=== PATIENT | female | born 1965 | race African-American/Black ===

== ENCOUNTER 2020-03-26 01:05 | Emergency (ER) | payer MEDICAID ==
[~2020-03-26] VITALS: Ht 165.1 cm; Wt 70.0 kg
[2020-03-26] MEDS ORDERED: PREDNISONE 20MG TABLET PO STA (01:21)
[2020-03-26] MEDS ORDERED: MAGNESIUM 2 G PREMIX 50 ML IV ONE (01:30)
[2020-03-26 03:56] VITALS: BP 174/100
== END 2020-03-26 03:57 | disposition home or self-care (01) ==
LOC: ER 01:05
DX: J44.1 Chronic obstructive pulmonary disease with (acute) exacerbation (principal); I10 Essential (primary) hypertension; E11.9 Type 2 diabetes mellitus without complications; Z87.891 Personal history of nicotine dependence; Z71.6 Tobacco abuse counseling
CPT/HCPCS: 71045; 96365; 99284; 99406; J3475; J7512

== ENCOUNTER 2021-07-03 07:26 | Emergency (ER) | payer MEDICAID, OTHER ==
[~2021-07-03] VITALS: Ht 160 cm; Wt 91.0 kg
[2021-07-03] MEDS ORDERED: ACETAMINOPHEN 325MG TABLET PO ONE (09:30)
[2021-07-03 09:45] VITALS: BP 123/63
== END 2021-07-03 10:25 | disposition home or self-care (01) ==
LOC: ER 07:26
DX: Z00.00 Encounter for general adult medical examination without abnormal findings (principal); Z48.00 Encounter for change or removal of nonsurgical wound dressing; Z46.6 Encounter for fitting and adjustment of urinary device; J44.9 Chronic obstructive pulmonary disease, unspecified; E11.9 Type 2 diabetes mellitus without complications; I10 Essential (primary) hypertension
CPT/HCPCS: 99283

== ENCOUNTER 2021-12-12 10:22 | Emergency (ER) | payer MEDICAID, OTHER ==
[~2021-12-12] VITALS: Ht 162.6 cm; Wt 68.0 kg
[2021-12-12] MEDS ORDERED: CLONIDINE 0.1MG TABLET PO ONE (11:00)
[2021-12-12 11:07] VITALS: BP 210/101
[2021-12-12 12:12] LABS: BASOPHILS % 0.4 % (0.0-2.0); HEMATOCRIT. 35.6 % (36.0-48.0); HEMOGLOBIN. 10.7 g/dL (12.0-16.0); LYMPHOCYTES % 33.4 % (20.0-50.0); MEAN CORPUSCULAR HEMOGLOBIN 19.7 pg (28.0-32.0); MEAN CORPUSCULAR VOLUME 65.7 fL (81.0-99.0); MEAN PLATELET VOLUME 8.9 fl (7.4-10.4); MONOCYTES % 7.9 % (2.0-8.0); NEUTROPHILS % 57.3 % (40.0-76.0); PLATELET 252 x1000/uL (130-400); RED BLOOD CELL COUNT 5.42 mill/uL (4.2-5.4)
[2021-12-12 12:20] LABS: CHLORIDE 111 mEq/L (98-107)
[2021-12-12 14:22] LABS: PLATELET ESTIMATE NORMAL
== END 2021-12-12 15:41 | disposition home or self-care (01) ==
LOC: ER 10:22
DX: I10 Essential (primary) hypertension (principal); E11.9 Type 2 diabetes mellitus without complications; J44.9 Chronic obstructive pulmonary disease, unspecified
CPT/HCPCS: 36415; 71045; 80053; 82962; 83880; 84484; 85025; 93005; 99285

== ENCOUNTER 2022-01-12 18:28 | Inpatient (IN) | payer MEDICAID ==
[~2022-01-12] VITALS: Ht 160 cm; Wt 76.2 kg
[2022-01-12] MEDS ORDERED: NITROGLYCERIN 0.4MG TABLET SL SL PRN (18:45)
[2022-01-12] MEDS ORDERED: CLONIDINE 0.2MG TABLET PO ONE (18:45)
[2022-01-12] MEDS ORDERED: ASPIRIN 81MG TABLET PO ONE (18:45)
[2022-01-12 19:06] LABS: BASOPHILS % 0.4 % (0.0-2.0); EOSINOPHILS % 1.3 % (0.0-5.0); HEMATOCRIT. 35.7 % (36.0-48.0); HEMOGLOBIN. 10.6 g/dL (12.0-16.0); LYMPHOCYTES % 25.9 % (20.0-50.0); MEAN CORPUSCULAR HEMOGLOBIN 20.1 pg (28.0-32.0); MEAN CORPUSCULAR VOLUME 67.7 fL (81.0-99.0); MEAN PLATELET VOLUME 8.8 fl (7.4-10.4); MONOCYTES % 7.8 % (2.0-8.0); NEUTROPHILS % 64.6 % (40.0-76.0); PLATELET 234 x1000/uL (130-400); RED BLOOD CELL COUNT 5.28 mill/uL (4.2-5.4)
[2022-01-12 19:11] LABS: CHLORIDE 98 mEq/L (98-107)
[2022-01-12] MEDS ORDERED: INSULIN REGULAR (HUMULIN R) 300UNITS/3ML VIAL SUBCUT ONE (19:45)
[2022-01-12 20:03] LABS: PLATELET ESTIMATE NORMAL
[2022-01-12] MEDS ORDERED: ENOXAPARIN 100MG/ML SYR SUBCUT ONE (22:00)
[2022-01-12] MEDS ORDERED: FUROSEMIDE 40MG/4ML VIAL IVP ONE (22:00)
[2022-01-12] MEDS ORDERED: IOHEXOL-350 100 ML BOTTLE ONE (22:34)
[2022-01-12] MEDS ORDERED: DOCUSATE SODIUM 100MG CAPSULE PO PRN (23:00)
[2022-01-12] MEDS ORDERED: CLONIDINE 0.1MG TABLET PO PRN (23:00)
[2022-01-12] MEDS ORDERED: HYDRALAZINE 20MG/ML VIAL IV PRN (23:00)
[2022-01-12] MEDS ORDERED: POTASSIUM CHLORIDE 20MEQ TABLET SR PO SCH (23:00)
[2022-01-12] MEDS ORDERED: ACETAMINOPHEN 325MG TABLET PO PRN ×2 (23:00)
[2022-01-12] MEDS ORDERED: MAGNESIUM/ALUMINUM HYDROXIDE/SIMETHICONE 30ML UDC PO PRN (23:00)
[2022-01-12] MEDS ORDERED: IPRATROPIUM/ALBUTEROL 0.5-3(2.5)MG/3ML NEB HHN PRN (23:00)
[2022-01-12] MEDS ORDERED: HYDROCODONE/ACETAMINOPHEN 5/325MG TABLET PO PRN (23:00)
[2022-01-12] MEDS ORDERED: ONDANSETRON HCL 4MG/2ML INJ IV PRN (23:00)
[2022-01-12] MEDS ORDERED: NALOXONE HCL 0.4 MG/ML 1ML VIAL IV PRN (23:15)
[2022-01-13] VITALS (8 sets, daily range): BP systolic 133–179; BP diastolic 70–105
[2022-01-13] MEDS ORDERED: POTASSIUM CHLORIDE 20MEQ TABLET SR PO ONE
[2022-01-13 01:24] LABS: INR 1.1; PARTIAL THROMBOPLASTIN TIME 36.7 sec (23.4-31.0); PROTHROMBIN TIME 11.6 sec (9.6-11.0)
[2022-01-13 06:25] LABS: BASOPHILS % 0.4 % (0.0-2.0); EOSINOPHILS % 1.4 % (0.0-5.0); HEMATOCRIT. 31.7 % (36.0-48.0); HEMOGLOBIN. 9.6 g/dL (12.0-16.0); LYMPHOCYTES % 32.3 % (20.0-50.0); MEAN CORPUSCULAR HEMOGLOBIN 19.5 pg (28.0-32.0); MEAN CORPUSCULAR VOLUME 64.6 fL (81.0-99.0); MEAN PLATELET VOLUME 8.6 fl (7.4-10.4); MONOCYTES % 9.1 % (2.0-8.0); NEUTROPHILS % 56.8 % (40.0-76.0); PLATELET 240 x1000/uL (130-400); RED BLOOD CELL COUNT 4.91 mill/uL (4.2-5.4); RED CELL DISTRIBUTION WIDTH 17.6 % (11.6-14.6)
[2022-01-13 06:27] LABS: CHLORIDE 102 mEq/L (98-107)
[2022-01-13] MEDS ORDERED: INSULIN LISPRO 100 UNITS/ML SUBCUT SCH ×2 (06:30→13:00)
[2022-01-13 06:34] LABS: LDL CHOLESTEROL 95 mg/dL (5-100)
[2022-01-13 06:35] LABS: HDL CHOLESTEROL 57 mg/dL (40-59)
[2022-01-13 06:38] LABS: CREATINE KINASE MB FRACTION 1.6 ng/mL (0.5-3.6)
[2022-01-13] MEDS ORDERED: NIFEDIPINE XL 60MG TAB PO SCH (09:00)
[2022-01-13] MEDS ORDERED: DEXTROSE 50% WATER 50ML SYRINGE IV PRN (10:00)
[2022-01-13] MEDS ORDERED: METF-416 PO (11:13)
[2022-01-13] MEDS ORDERED: OMEP20TA2 PO (11:13)
[2022-01-13] MEDS ORDERED: BENA20TA10 PO (11:13)
[2022-01-13] MEDS ORDERED: MONT10TA32 PO (11:13)
[2022-01-13] MEDS ORDERED: GABA300S PO (11:13)
[2022-01-13] MEDS ORDERED: ALBU6.7H15 IH (11:14)
[2022-01-13] MEDS: BLOOD SUGAR DIAGNOSTIC STRIP TEST SCH ×3 (12:01→22:47)
[2022-01-13] MEDS: FUROSEMIDE 40MG/4ML VIAL IV SCH ×2 (12:06→22:47)
[2022-01-13] MEDS: METFORMIN HCL 500MG TABLET PO SCH (17:03)
[2022-01-13] MEDS: NIFEDIPINE XL 30MG TAB PO SCH (17:04)
[2022-01-13] MEDS: INSULIN LISPRO 100 UNITS/ML SUBCUT SCH ×2 (17:05→21:00)
[2022-01-13 17:07] LABS: CREATINE KINASE MB FRACTION 1.6 ng/mL (0.5-3.6)
[2022-01-13] MEDS ORDERED: INSULIN GLARGINE UD 100 UNITS/ML SYR SUBCUT SCH (22:00)
[2022-01-13] MEDS: PANTOPRAZOLE SODIUM 40 MG/VIAL IV SCH (22:47)
[2022-01-13] MEDS: LISINOPRIL 10MG TABLET PO SCH (22:47)
[2022-01-13] MEDS: GABAPENTIN SOLN 300MG/6ML UDC PO SCH (22:47)
[2022-01-13] MEDS: DIPHENHYDRAMINE 25MG CAPSULE PO PRN (22:47)
[2022-01-14] VITALS (10 sets, daily range): BP systolic 95–183; BP diastolic 47–109
[2022-01-14 05:47] LABS: PROTHROMBIN TIME 11.1 sec (9.6-11.0)
[2022-01-14 06:00] LABS: BASOPHILS % 0.5 % (0.0-2.0); EOSINOPHILS % 2.6 % (0.0-5.0); HEMATOCRIT. 36.2 % (36.0-48.0); LYMPHOCYTES % 28.4 % (20.0-50.0); MEAN CORPUSCULAR HEMOGLOBIN 19.7 pg (28.0-32.0); MEAN CORPUSCULAR VOLUME 64.6 fL (81.0-99.0); MEAN PLATELET VOLUME 9.6 fl (7.4-10.4); MONOCYTES % 7.5 % (2.0-8.0); PLATELET 262 x1000/uL (130-400)
[2022-01-14] MEDS: BLOOD SUGAR DIAGNOSTIC STRIP TEST SCH ×4 (07:30→21:41)
[2022-01-14] MEDS: LISINOPRIL 10MG TABLET PO SCH (08:25)
[2022-01-14] MEDS: MONTELUKAST SODIUM 10MG TABLET PO SCH (08:25)
[2022-01-14] MEDS: NIFEDIPINE XL 30MG TAB PO SCH (08:25)
[2022-01-14] MEDS: METFORMIN HCL 500MG TABLET PO SCH ×2 (08:25→17:10)
[2022-01-14] MEDS: PANTOPRAZOLE SODIUM 40 MG/VIAL IV SCH ×2 (08:26→21:28)
[2022-01-14] MEDS: FUROSEMIDE 40MG/4ML VIAL IV SCH ×2 (08:26→21:28)
[2022-01-14] MEDS: ENOXAPARIN 40MG/0.4ML SYR SUBCUT SCH ×2 (09:45→16:55)
[2022-01-14] MEDS: INSULIN LISPRO 100 UNITS/ML SUBCUT SCH ×4 (09:45→21:00)
[2022-01-14] MEDS ORDERED: INFLUENZA VACCINE IM ONE (10:00)
[2022-01-14] MEDS: DILTIAZEM HCL 90MG TABLET PO SCH ×3 (13:35→23:39)
[2022-01-14] MEDS: PNEUMOCOCCAL VACCINE IM ONE ×2 (17:09→17:12)
[2022-01-14] MEDS ORDERED: LISINOPRIL 20MG TABLET PO SCH (21:00)
[2022-01-14] MEDS: GABAPENTIN SOLN 300MG/6ML UDC PO SCH (21:28)
[2022-01-14] MEDS: DIPHENHYDRAMINE 25MG CAPSULE PO PRN (21:36)
[2022-01-15] VITALS (10 sets, daily range): BP systolic 120–167; BP diastolic 63–106
[2022-01-15 05:16] LABS: BASOPHILS % 0.6 % (0.0-2.0); EOSINOPHILS % 2.2 % (0.0-5.0); HEMOGLOBIN. 10.6 g/dL (12.0-16.0); LYMPHOCYTES % 31.2 % (20.0-50.0); MEAN CORPUSCULAR HEMOGLOBIN 19.5 pg (28.0-32.0); MEAN CORPUSCULAR VOLUME 64.6 fL (81.0-99.0); MEAN PLATELET VOLUME 9.2 fl (7.4-10.4); MONOCYTES % 8.3 % (2.0-8.0); NEUTROPHILS % 57.7 % (40.0-76.0); PLATELET 276 x1000/uL (130-400); RED BLOOD CELL COUNT 5.41 mill/uL (4.2-5.4); RED CELL DISTRIBUTION WIDTH 17.8 % (11.6-14.6)
[2022-01-15 05:32] LABS: PROTHROMBIN TIME 10.9 sec (9.6-11.0)
[2022-01-15] MEDS: DILTIAZEM HCL 90MG TABLET PO SCH (06:50)
[2022-01-15] MEDS: PANTOPRAZOLE SODIUM 40 MG/VIAL IV SCH ×2 (08:09→21:22)
[2022-01-15] MEDS: INSULIN LISPRO 100 UNITS/ML SUBCUT SCH ×4 (08:11→21:00)
[2022-01-15] MEDS: BLOOD SUGAR DIAGNOSTIC STRIP TEST SCH ×4 (08:27→21:29)
[2022-01-15] MEDS: MONTELUKAST SODIUM 10MG TABLET PO SCH (08:27)
[2022-01-15] MEDS ORDERED: BARIUM SULFATE 176 GM SUSP.RECON ONE (08:29)
[2022-01-15] MEDS ORDERED: EZ-HD SUSPENSION(BARIUM SULFATE 340GM) PO ONE (08:29)
[2022-01-15] MEDS ORDERED: SIMETHICONE/SOD BICARB/CIT AC 1 EACH GRAN.EF.PK ONE (08:30)
[2022-01-15] MEDS: DILTIAZEM HCL 120MG CAPSULE CD 24HR PO SCH ×2 (10:59→17:37)
[2022-01-15] MEDS ORDERED: DILT120C88 PO (19:00)
[2022-01-15] MEDS ORDERED: PANT40TA51 MT (19:00)
[2022-01-15] MEDS ORDERED: INSU100I28 SQ (19:00)
[2022-01-15] MEDS ORDERED: [UNRECOGNIZED DRUG - CODE] IN (19:00)
[2022-01-15] MEDS: GABAPENTIN SOLN 300MG/6ML UDC PO SCH (21:22)
[2022-01-15] MEDS: DIPHENHYDRAMINE 25MG CAPSULE PO PRN (21:22)
[2022-01-16] VITALS: BP 155/89
[2022-01-16 02:00] VITALS: BP 147/79
[2022-01-16 04:00] VITALS: BP 150/81
[2022-01-16 05:42] VITALS: BP 166/92
[2022-01-16 06:00] VITALS: BP 166/92
[2022-01-16 08:00] VITALS: BP 160/85
[2022-01-16] MEDS: BLOOD SUGAR DIAGNOSTIC STRIP TEST SCH (08:02)
[2022-01-16] MEDS: PANTOPRAZOLE SODIUM 40 MG/VIAL IV SCH (08:07)
[2022-01-16] MEDS: ENOXAPARIN 40MG/0.4ML SYR SUBCUT SCH (08:07)
[2022-01-16] MEDS: DILTIAZEM HCL 120MG CAPSULE CD 24HR PO SCH (08:07)
[2022-01-16] MEDS: MONTELUKAST SODIUM 10MG TABLET PO SCH (08:08)
[2022-01-16] MEDS: INSULIN LISPRO 100 UNITS/ML SUBCUT SCH (08:09)
== END 2022-01-16 09:41 | disposition home or self-care (01) | DRG 194 ==
LOC: ER 18:28 → MICUSO 21:52 → 5EST 01-13 09:23
PROVIDERS: ADMIT Internal Medicine; ATTEND Internal Medicine
DX: I13.0 Hypertensive heart and chronic kidney disease with heart failure and stage 1 through stage 4 chronic kidney disease, or unspecified chronic kidney disease (principal); J96.00 Acute respiratory failure, unspecified whether with hypoxia or hypercapnia; E43 Unspecified severe protein-calorie malnutrition; J44.1 Chronic obstructive pulmonary disease with (acute) exacerbation; I27.21 Secondary pulmonary arterial hypertension; D64.9 Anemia, unspecified; E11.22 Type 2 diabetes mellitus with diabetic chronic kidney disease; E11.65 Type 2 diabetes mellitus with hyperglycemia; E66.9 Obesity, unspecified; K44.9 Diaphragmatic hernia without obstruction or gangrene; L02.32 Furuncle of buttock; K21.9 Gastro-esophageal reflux disease without esophagitis; N18.2 Chronic kidney disease, stage 2 (mild); Z20.822 Contact with and (suspected) exposure to COVID-19; Z79.899 Other long term (current) drug therapy; K22.89 Other specified disease of esophagus; Z79.4 Long term (current) use of insulin; Z87.891 Personal history of nicotine dependence; Z68.29 Body mass index [BMI] 29.0-29.9, adult; I07.1 Rheumatic tricuspid insufficiency; I50.33 Acute on chronic diastolic (congestive) heart failure
CPT/HCPCS: 36415; 71045; 71275; 74220; 80048; 80053; 80061; 82550; 82553; 82607; 82728; 82746; 82962; 83036; 83540; 83550; 83735; 83880; 84443; 84484; 85025; 85044; 85379; 87426; 90686; 90732; 93005; 93306; 93970; 94640; 99285; C9113; J1650; J1815; J1940; J7517; Q0163; Q9967

== ENCOUNTER 2022-05-07 13:48 | Inpatient (IN) | payer MEDICAID ==
[~2022-05-07] VITALS: Ht 157.5 cm; Wt 80.7 kg
[~2022-05-07 13:48] MED LIST: ALBU6.7H15 IH; DILT120C88 PO; GABA300S PO; INSU100I28 SQ; METF-416 PO; MONT-39 PO; PANT40TA51 MT; [UNRECOGNIZED DRUG - CODE] IN
[2022-05-07] MEDS ORDERED: MORPHINE SULFATE 4 MG/ML CPJ (NOT FOR IM USE) IV STA (15:30)
[2022-05-07] MEDS ORDERED: ONDANSETRON HCL 4MG/2ML INJ IV STA (15:30)
[2022-05-07] MEDS ORDERED: SODIUM CHLORIDE 0.9% 1,000 ML IV ONE (15:30)
[2022-05-07 16:02] LABS: BASOPHILS % 0.5 % (0.0-2.0); EOSINOPHILS % 1.1 % (0.0-5.0); HEMATOCRIT. 43.6 % (36.0-48.0); HEMOGLOBIN. 13.2 g/dL (12.0-16.0); LYMPHOCYTES % 34.7 % (20.0-50.0); MEAN CORPUSCULAR HEMOGLOBIN 20.1 pg (28.0-32.0); MEAN CORPUSCULAR VOLUME 66.6 fL (81.0-99.0); MEAN PLATELET VOLUME 8.8 fl (7.4-10.4); MONOCYTES % 9.1 % (2.0-8.0); NEUTROPHILS % 54.6 % (40.0-76.0); PLATELET 277 x1000/uL (130-400); RED BLOOD CELL COUNT 6.55 mill/uL (4.2-5.4); RED CELL DISTRIBUTION WIDTH 15.6 % (11.6-14.6)
[2022-05-07 16:07] LABS: CHLORIDE 100 mEq/L (98-107)
[2022-05-07 16:23] LABS: PLATELET ESTIMATE NORMAL
[2022-05-07] MEDS ORDERED: INSULIN REGULAR (HUMULIN R) 300UNITS/3ML VIAL SUBCUT ONE (18:00)
[2022-05-07] MEDS ORDERED: ASPIRIN 325MG EC TABLET PO ONE (19:15)
[2022-05-07] MEDS ORDERED: MORPHINE SULFATE 4 MG/ML CPJ (NOT FOR IM USE) IV NR (20:30)
[2022-05-07] MEDS ORDERED: INSULIN REGULAR (HUMULIN R) 300UNITS/3ML VIAL SUBCUT NR (20:30)
[2022-05-07] MEDS ORDERED: ONDANSETRON HCL 4MG/2ML INJ IV NR (20:30)
[2022-05-07] MEDS ORDERED: CLONIDINE 0.2MG TABLET PO ONE (20:45)
[2022-05-07] MEDS ORDERED: CLONIDINE 0.2MG TABLET PO SCH (21:00)
[2022-05-07] MEDS ORDERED: DOCUSATE SODIUM 100MG CAPSULE PO PRN (21:30)
[2022-05-07] MEDS ORDERED: MAGNESIUM/ALUMINUM HYDROXIDE/SIMETHICONE 30ML UDC PO PRN (21:30)
[2022-05-07] MEDS ORDERED: ONDANSETRON HCL 4MG/2ML INJ IV PRN (21:30)
[2022-05-07] MEDS ORDERED: DEXTROSE 50% WATER 50ML SYRINGE IV PRN (21:30)
[2022-05-07] MEDS ORDERED: NITROGLYCERIN 0.4MG TABLET SL SL PRN (21:30)
[2022-05-07] MEDS ORDERED: ACETAMINOPHEN 325MG TABLET PO PRN ×2 (21:30)
[2022-05-07] MEDS ORDERED: GUAIFENESIN 200MG/10ML SUGAR FREE UDC PO PRN (21:30)
[2022-05-07] MEDS ORDERED: KETOROLAC 15MG/ML VIAL IV PRN (21:30)
[2022-05-07] MEDS ORDERED: NA PHOS,M-B/NA PHOS,DI-BA ENEMA 118ML PR PRN (21:30)
[2022-05-07] MEDS ORDERED: CLONIDINE 0.1MG TABLET PO PRN (21:30)
[2022-05-07] MEDS ORDERED: ZOLPIDEM TARTRATE 5MG TABLET PO PRN (21:30)
[2022-05-07] MEDS ORDERED: IPRATROPIUM/ALBUTEROL 0.5-3(2.5)MG/3ML NEB NEB PRN (21:30)
[2022-05-07 22:53] LABS: FOLIC ACID (FOLATE) SERUM 19.9 ng/mL (>5.38)
[2022-05-07] MEDS: NITROGLYCERIN OINT 1GM/INCH UDPKT TD SCH (23:14)
[2022-05-07] MEDS: HYDRALAZINE HCL 50MG TABLET PO SCH (23:14)
[2022-05-07] MEDS: AMLODIPINE 10MG TABLET PO SCH (23:14)
[2022-05-07] MEDS: INSULIN GLARGINE 100 UNITS/ML SUBCUT SCH (23:15)
[2022-05-08] VITALS (7 sets, daily range): BP systolic 98–167; BP diastolic 51–100
[2022-05-08 04:36] LABS: BASOPHILS % 0.4 % (0.0-2.0); EOSINOPHILS % 1.4 % (0.0-5.0); HEMATOCRIT. 39.5 % (36.0-48.0); HEMOGLOBIN. 11.8 g/dL (12.0-16.0); LYMPHOCYTES % 45.2 % (20.0-50.0); MEAN CORPUSCULAR VOLUME 66.9 fL (81.0-99.0); MEAN PLATELET VOLUME 8.2 fl (7.4-10.4); MONOCYTES % 9.2 % (2.0-8.0); NEUTROPHILS % 43.8 % (40.0-76.0); PLATELET 271 x1000/uL (130-400); RED BLOOD CELL COUNT 5.91 mill/uL (4.2-5.4); RED CELL DISTRIBUTION WIDTH 15.2 % (11.6-14.6)
[2022-05-08 05:08] LABS: CHLORIDE 102 mEq/L (98-107)
[2022-05-08 05:20] LABS: CREATINE KINASE 48 IU/L (26-192); CREATINE KINASE MB FRACTION 1.8 ng/mL (0.5-3.6); PHOSPHORUS 4.6 mg/dL (2.5-4.9)
[2022-05-08] MEDS: HYDRALAZINE HCL 50MG TABLET PO SCH ×3 (05:41→21:49)
[2022-05-08] MEDS: BLOOD SUGAR DIAGNOSTIC STRIP TEST SCH ×4 (05:55→20:57)
[2022-05-08] MEDS: NITROGLYCERIN OINT 1GM/INCH UDPKT TD SCH ×3 (06:13→21:49)
[2022-05-08] MEDS: METOCLOPRAMIDE 10MG/10 ML UDC PO SCH ×3 (06:13→17:40)
[2022-05-08] MEDS: INSULIN LISPRO 100 UNITS/ML SUBCUT SCH ×4 (06:15→20:59)
[2022-05-08] MEDS: AMLODIPINE 10MG TABLET PO SCH (08:56)
[2022-05-08] MEDS ORDERED: ENOXAPARIN 40MG/0.4ML SYR SUBCUT SCH (09:00)
[2022-05-08] MEDS: FUROSEMIDE 40MG/4ML VIAL IVP SCH ×2 (09:40→20:57)
[2022-05-08] MEDS: SPIRONOLACTONE 25MG TABLET PO SCH ×2 (09:40→20:57)
[2022-05-08] MEDS: ASPIRIN 325MG EC TABLET PO SCH (09:40)
[2022-05-08] MEDS: FAMOTIDINE 20MG TABLET PO SCH ×2 (09:43→20:57)
[2022-05-08] MEDS: GABAPENTIN 100MG CAPSULE PO SCH ×2 (14:57→21:49)
[2022-05-08 16:33] LABS: CREATINE KINASE MB FRACTION 1.9 ng/mL (0.5-3.6)
[2022-05-08 16:51] LABS: ETHANOL BLOOD < 10 mg/dL; HDL CHOLESTEROL 40 mg/dL (40-59); LDL CHOLESTEROL 114 mg/dL (5-100); TOTAL IRON BINDING CAPACITY 307 ug/dL (250-450)
[2022-05-08] MEDS: INSULIN GLARGINE 100 UNITS/ML SUBCUT SCH (21:50)
[2022-05-09] VITALS: BP 121/71
[2022-05-09 04:00] VITALS: BP 144/88
[2022-05-09] MEDS: NITROGLYCERIN OINT 1GM/INCH UDPKT TD SCH ×2 (05:15→13:29)
[2022-05-09] MEDS: HYDRALAZINE HCL 50MG TABLET PO SCH ×2 (05:15→13:28)
[2022-05-09] MEDS: GABAPENTIN 100MG CAPSULE PO SCH ×2 (05:15→13:28)
[2022-05-09] MEDS: BLOOD SUGAR DIAGNOSTIC STRIP TEST SCH ×3 (06:12→16:25)
[2022-05-09] MEDS: INSULIN LISPRO 100 UNITS/ML SUBCUT SCH ×3 (06:12→16:41)
[2022-05-09] MEDS: METOCLOPRAMIDE 10MG/10 ML UDC PO SCH ×3 (06:12→16:40)
[2022-05-09 08:00] VITALS: BP 136/68
[2022-05-09] MEDS ORDERED: ENOXAPARIN 30MG/0.3ML SYR SUBCUT SCH (09:00)
[2022-05-09] MEDS: FAMOTIDINE 20MG TABLET PO SCH (09:11)
[2022-05-09] MEDS: FUROSEMIDE 40MG/4ML VIAL IVP SCH (09:11)
[2022-05-09] MEDS: ASPIRIN 325MG EC TABLET PO SCH (09:11)
[2022-05-09] MEDS: SPIRONOLACTONE 25MG TABLET PO SCH (09:11)
[2022-05-09] MEDS: AMLODIPINE 10MG TABLET PO SCH (09:11)
[2022-05-09] MEDS ORDERED: INSULIN GLARGINE 100 UNITS/ML SUBCUT SCH (10:00)
[2022-05-09 12:00] VITALS: BP 121/65
[2022-05-09 16:00] VITALS: BP 111/47
== END 2022-05-09 19:25 | disposition left against medical advice (07) | DRG 203 ==
LOC: ER 13:48 → 8WST 19:10 → ENRESERV 20:03
PROVIDERS: ADMIT Internal Medicine; ATTEND Internal Medicine
DX: M94.0 Chondrocostal junction syndrome [Tietze] (principal); N17.0 Acute kidney failure with tubular necrosis; I50.33 Acute on chronic diastolic (congestive) heart failure; E44.1 Mild protein-calorie malnutrition; I11.0 Hypertensive heart disease with heart failure; E87.1 Hypo-osmolality and hyponatremia; K80.20 Calculus of gallbladder without cholecystitis without obstruction; E11.65 Type 2 diabetes mellitus with hyperglycemia; I16.1 Hypertensive emergency; E66.9 Obesity, unspecified; J44.9 Chronic obstructive pulmonary disease, unspecified; M19.90 Unspecified osteoarthritis, unspecified site; R19.00 Intra-abdominal and pelvic swelling, mass and lump, unspecified site; Z68.32 Body mass index [BMI] 32.0-32.9, adult; Z53.29 Procedure and treatment not carried out because of patient's decision for other reasons
CPT/HCPCS: 36415; 71045; 74176; 76705; 76830; 76856; 80053; 80061; 80305; 80320; 82550; 82553; 82607; 82746; 82962; 83036; 83540; 83550; 83735; 83880; 84100; 84439; 84443; 84484; 85025; 93005; 93306; 93970; 97162; 97165; 99285; J1650; J1815; J1940; J2270; J2405; J7030; J8597; G0480

== ENCOUNTER 2022-08-05 15:30 | Emergency (ER) | payer MEDICAID ==
[~2022-08-05] VITALS: Ht 160 cm; Wt 65.0 kg
[2022-08-05] MEDS ORDERED: ALBUTEROL (0.083%) 2.5MG/3ML NEB HHN STA (16:44)
[2022-08-05] MEDS ORDERED: NITROGLYCERIN 0.4MG TABLET SL SL PRN (16:45)
[2022-08-05] MEDS ORDERED: ASPIRIN 81MG TABLET PO ONE (16:45)
[2022-08-05] MEDS ORDERED: CLONIDINE 0.2MG TABLET PO ONE (17:00)
[2022-08-05 17:19] LABS: BASOPHILS % 0.5 % (0.0-2.0); EOSINOPHILS % 1.3 % (0.0-5.0); HEMATOCRIT. 37.2 % (36.0-48.0); HEMOGLOBIN. 11.1 g/dL (12.0-16.0); LYMPHOCYTES % 21.1 % (20.0-50.0); MEAN CORPUSCULAR HEMOGLOBIN 20.5 pg (28.0-32.0); MEAN CORPUSCULAR VOLUME 68.9 fL (81.0-99.0); MEAN PLATELET VOLUME 8.9 fl (7.4-10.4); MONOCYTES % 7.6 % (2.0-8.0); NEUTROPHILS % 69.5 % (40.0-76.0); PLATELET 272 x1000/uL (130-400); RED CELL DISTRIBUTION WIDTH 16.6 % (11.6-14.6)
[2022-08-05 17:25] LABS: CHLORIDE 101 mEq/L (98-107)
[2022-08-05 17:29] LABS: PARTIAL THROMBOPLASTIN TIME 30.5 sec (23.4-31.0)
[2022-08-05] MEDS ORDERED: INSULIN REGULAR (HUMULIN R) 300UNITS/3ML VIAL SUBCUT NR (18:04)
[2022-08-05] MEDS ORDERED: INSULIN REGULAR (HUMULIN R) UD 100 UNITS/ML SYR SUBCUT ONE (18:15)
[2022-08-05 18:30] LABS: PLATELET ESTIMATE NORMAL
[2022-08-05 20:00] VITALS: BP 142/72
== END 2022-08-05 21:20 | disposition admitted as inpatient to this hospital (09) ==
LOC: ER 15:30 → EDBEDREQ 18:19 → EDBEDREQTM 18:19 → ENRESERV 19:15 → ER 21:20 → CANBEDREQ 08-06 08:48
DX: I10 Essential (primary) hypertension (principal); R06.09 Other forms of dyspnea; E11.9 Type 2 diabetes mellitus without complications; J44.1 Chronic obstructive pulmonary disease with (acute) exacerbation
CPT/HCPCS: 36415; 71045; 80053; 83880; 84484; 85025; 85610; 85730; 93005; 99285; Z7610; J1815

== ENCOUNTER 2022-08-29 08:58 | Inpatient (IN) | payer MEDICAID ==
[~2022-08-29] VITALS: Ht 162.6 cm; Wt 89.0 kg
[2022-08-29] MEDS ORDERED: NITROGLYCERIN 0.4MG TABLET SL SL PRN (09:45)
[2022-08-29] MEDS ORDERED: MORPHINE SULFATE 2 MG/ML CPJ (NOT FOR IM USE) IV NR (10:00)
[2022-08-29] MEDS ORDERED: ONDANSETRON HCL 4MG/2ML INJ IV SCH (10:00)
[2022-08-29 10:13] LABS: HEMATOCRIT. 37.3 % (36.0-48.0); HEMOGLOBIN. 11.1 g/dL (12.0-16.0); MEAN CORPUSCULAR HEMOGLOBIN 20.2 pg (28.0-32.0); MEAN CORPUSCULAR VOLUME 68.3 fL (81.0-99.0); MEAN PLATELET VOLUME 9.2 fl (7.4-10.4); PLATELET 258 x1000/uL (130-400); RED BLOOD CELL COUNT 5.46 mill/uL (4.2-5.4); RED CELL DISTRIBUTION WIDTH 16.2 % (11.6-14.6)
[2022-08-29 10:19] LABS: CHLORIDE 102 mEq/L (98-107)
[2022-08-29 10:31] LABS: ETHANOL BLOOD < 10 mg/dL
[2022-08-29] MEDS ORDERED: ASPIRIN 325MG EC TABLET PO ONE (11:00)
[2022-08-29 11:02] LABS: PLATELET ESTIMATE NORMAL
[2022-08-29] MEDS ORDERED: POTASSIUM CHLORIDE 20MEQ TABLET SR PO NR (11:15)
[2022-08-29] MEDS ORDERED: KCL 20MEQ/100ML PREMIX 100 ML IV NR (11:15)
[2022-08-29 12:20] LABS: INR 1.1; PARTIAL THROMBOPLASTIN TIME 29.3 sec (23.4-31.0); PROTHROMBIN TIME 11.3 sec (9.6-11.0)
[2022-08-29] MEDS ORDERED: MAGNESIUM 2 G PREMIX 50 ML IV NR (13:00)
[2022-08-29] MEDS ORDERED: CEFTRIAXONE 1 G PREMIX 50 ML IV SCH (13:45)
[2022-08-29] MEDS ORDERED: DEXTROSE 50% WATER 50ML SYRINGE IV PRN (13:45)
[2022-08-29] MEDS ORDERED: ONDANSETRON HCL 4MG/2ML INJ IV PRN (13:45)
[2022-08-29] MEDS ORDERED: INSULIN GLARGINE 100 UNITS/ML SUBCUT SCH (13:45)
[2022-08-29 14:30] VITALS: BP 144/85
[2022-08-29 20:00] VITALS: BP 119/56
[2022-08-29] MEDS: ACETAMINOPHEN 325MG TABLET PO PRN (20:20)
[2022-08-29] MEDS: BLOOD SUGAR DIAGNOSTIC STRIP TEST SCH (20:25)
[2022-08-29] MEDS: INSULIN LISPRO 100 UNITS/ML SUBCUT SCH (20:26)
[2022-08-30] VITALS: BP 130/66
[2022-08-30 04:00] VITALS: BP 139/85
[2022-08-30] MEDS: BLOOD SUGAR DIAGNOSTIC STRIP TEST SCH ×4 (05:52→20:58)
[2022-08-30] MEDS: INSULIN LISPRO 100 UNITS/ML SUBCUT SCH ×4 (06:05→21:02)
[2022-08-30 08:00] VITALS: BP 148/82
[2022-08-30] MEDS ORDERED: LEVO250T43 MT ×2 (11:11)
[2022-08-30 12:00] VITALS: BP 134/80
[2022-08-30] MEDS: CEFTRIAXONE 1,000 MG in DEXTROSE 5% WATER 50 ML IV SCH (15:21)
[2022-08-30] MEDS: SODIUM CHLORIDE 0.9% 1,000 ML IV SCH (15:21)
[2022-08-30 15:49] LABS: BASOPHILS % 0.2 % (0.0-2.0); EOSINOPHILS % 0.3 % (0.0-5.0); HEMATOCRIT. 35.6 % (36.0-48.0); HEMOGLOBIN. 11.1 g/dL (12.0-16.0); LYMPHOCYTES % 9.1 % (20.0-50.0); MEAN CORPUSCULAR HEMOGLOBIN 20.7 pg (28.0-32.0); MEAN CORPUSCULAR VOLUME 66.2 fL (81.0-99.0); MEAN PLATELET VOLUME 9.7 fl (7.4-10.4); MONOCYTES % 5.5 % (2.0-8.0); NEUTROPHILS % 84.9 % (40.0-76.0); PLATELET 227 x1000/uL (130-400); RED BLOOD CELL COUNT 5.39 mill/uL (4.2-5.4); RED CELL DISTRIBUTION WIDTH 15.6 % (11.6-14.6)
[2022-08-30 16:00] VITALS: BP 128/69
[2022-08-30] MEDS ORDERED: VANCOMYCIN 1,750 MG in DEXT 5% WATER 500 ML IV NR (16:00)
[2022-08-30 17:06] LABS: PLATELET ESTIMATE NORMAL
[2022-08-30 20:00] VITALS: BP 127/64
[2022-08-30] MEDS: LORAZEPAM 2MG/ML CPJ IV PRN (20:15)
[2022-08-31] VITALS: BP 150/74
[2022-08-31 04:00] VITALS: BP 142/64
[2022-08-31] MEDS: LORAZEPAM 2MG/ML CPJ IV PRN ×2 (04:24→12:46)
[2022-08-31] MEDS: BLOOD SUGAR DIAGNOSTIC STRIP TEST SCH ×4 (05:41→20:43)
[2022-08-31] MEDS: SODIUM CHLORIDE 0.9% 1,000 ML IV SCH (05:42)
[2022-08-31] MEDS: INSULIN LISPRO 100 UNITS/ML SUBCUT SCH ×4 (06:12→20:43)
[2022-08-31 08:00] VITALS: BP 156/88
[2022-08-31 08:16] LABS: BASOPHILS % 0.1 % (0.0-2.0); EOSINOPHILS % 0.5 % (0.0-5.0); HEMATOCRIT. 34.2 % (36.0-48.0); HEMOGLOBIN. 10.4 g/dL (12.0-16.0); LYMPHOCYTES % 12.1 % (20.0-50.0); MEAN CORPUSCULAR HEMOGLOBIN 20.4 pg (28.0-32.0); MEAN CORPUSCULAR VOLUME 66.8 fL (81.0-99.0); MEAN PLATELET VOLUME 9.7 fl (7.4-10.4); MONOCYTES % 6.9 % (2.0-8.0); NEUTROPHILS % 80.4 % (40.0-76.0); PLATELET 214 x1000/uL (130-400); RED BLOOD CELL COUNT 5.12 mill/uL (4.2-5.4); RED CELL DISTRIBUTION WIDTH 15.9 % (11.6-14.6)
[2022-08-31] MEDS: ASPIRIN 81MG TABLET PO SCH (08:41)
[2022-08-31] MEDS ORDERED: HALOPERIDOL LACTATE 5MG/ML VIAL IM PRN (08:45)
[2022-08-31] MEDS: HALOPERIDOL LACTATE 5MG/ML VIAL IM PRN (09:01)
[2022-08-31 12:00] VITALS: BP 152/92
[2022-08-31] MEDS: IPRATROPIUM/ALBUTEROL 0.5-3(2.5)MG/3ML NEB HHN PRN (15:03)
[2022-08-31 16:13] VITALS: BP 140/80
[2022-08-31] MEDS ORDERED: THIAMINE HCL 100 MG in SODIUM CHLORIDE 0.9% 50 ML IV NR (17:00)
[2022-08-31] MEDS: CEFTRIAXONE 1,000 MG in DEXTROSE 5% WATER 50 ML IV SCH (17:00)
[2022-08-31 20:00] VITALS: BP 154/74
[2022-08-31] MEDS: RISPERIDONE 0.5MG TABLET PO SCH (20:42)
[2022-08-31] MEDS: INSULIN GLARGINE 100 UNITS/ML SUBCUT SCH (23:00)
[2022-09-01] VITALS: BP 156/87
[2022-09-01] MEDS: SODIUM CHLORIDE 0.9% 1,000 ML IV SCH ×2 (01:23→22:18)
[2022-09-01] MEDS: HALOPERIDOL LACTATE 5MG/ML VIAL IM PRN ×2 (02:35→09:29)
[2022-09-01 04:00] VITALS: BP 159/82
[2022-09-01] MEDS: BLOOD SUGAR DIAGNOSTIC STRIP TEST SCH ×4 (06:25→21:00)
[2022-09-01] MEDS: INSULIN LISPRO 100 UNITS/ML SUBCUT SCH ×4 (06:28→21:00)
[2022-09-01 07:47] LABS: BASOPHILS % 0.4 % (0.0-2.0); EOSINOPHILS % 0.5 % (0.0-5.0); HEMATOCRIT. 31.3 % (36.0-48.0); HEMOGLOBIN. 9.6 g/dL (12.0-16.0); LYMPHOCYTES % 13.6 % (20.0-50.0); MEAN CORPUSCULAR HEMOGLOBIN 20.3 pg (28.0-32.0); MEAN CORPUSCULAR VOLUME 66.1 fL (81.0-99.0); MEAN PLATELET VOLUME 9.6 fl (7.4-10.4); MONOCYTES % 8.2 % (2.0-8.0); NEUTROPHILS % 77.3 % (40.0-76.0); PLATELET 222 x1000/uL (130-400); RED BLOOD CELL COUNT 4.73 mill/uL (4.2-5.4); RED CELL DISTRIBUTION WIDTH 15.3 % (11.6-14.6)
[2022-09-01 08:00] VITALS: BP 140/82
[2022-09-01 08:18] LABS: CHLORIDE 111 mEq/L (98-107)
[2022-09-01] MEDS: RISPERIDONE 0.5MG TABLET PO SCH (08:32)
[2022-09-01] MEDS: ASPIRIN 81MG TABLET PO SCH (08:32)
[2022-09-01] MEDS: LORAZEPAM 2MG/ML CPJ IV PRN (08:44)
[2022-09-01] MEDS: INSULIN GLARGINE 100 UNITS/ML SUBCUT SCH ×2 (10:00→22:21)
[2022-09-01 12:00] VITALS: BP 143/85
[2022-09-01] MEDS ORDERED: TEMAZEPAM 15MG CAPSULE PO PRN (13:00)
[2022-09-01] MEDS: VALPROATE SODIUM 250MG/5ML UDC PO SCH ×2 (13:00→17:00)
[2022-09-01] MEDS: CEFTRIAXONE 1,000 MG in DEXTROSE 5% WATER 50 ML IV SCH ×2 (15:21→15:36)
[2022-09-01 16:00] VITALS: BP 148/88
[2022-09-01 20:00] VITALS: BP 196/76
[2022-09-01] MEDS: RISPERIDONE 1MG TABLET PO SCH (22:30)
[2022-09-02] VITALS: BP 168/91
[2022-09-02] MEDS: LORAZEPAM 2MG/ML CPJ IV PRN (00:35)
[2022-09-02 04:00] VITALS: BP 179/94
[2022-09-02] MEDS: ACETAMINOPHEN 325MG TABLET PO PRN (04:06)
[2022-09-02] MEDS: BLOOD SUGAR DIAGNOSTIC STRIP TEST SCH ×4 (06:22→20:34)
[2022-09-02] MEDS: INSULIN LISPRO 100 UNITS/ML SUBCUT SCH ×5 (06:33→20:35)
[2022-09-02 07:09] LABS: BASOPHILS % 0.2 % (0.0-2.0); EOSINOPHILS % 0.9 % (0.0-5.0); HEMATOCRIT. 30.8 % (36.0-48.0); HEMOGLOBIN. 9.6 g/dL (12.0-16.0); LYMPHOCYTES % 19.9 % (20.0-50.0); MEAN CORPUSCULAR HEMOGLOBIN 20.4 pg (28.0-32.0); MEAN CORPUSCULAR VOLUME 65.2 fL (81.0-99.0); MEAN PLATELET VOLUME 9.3 fl (7.4-10.4); MONOCYTES % 9.9 % (2.0-8.0); NEUTROPHILS % 69.1 % (40.0-76.0); PLATELET 267 x1000/uL (130-400); RED BLOOD CELL COUNT 4.73 mill/uL (4.2-5.4); RED CELL DISTRIBUTION WIDTH 15.3 % (11.6-14.6)
[2022-09-02 07:27] LABS: CHLORIDE 109 mEq/L (98-107)
[2022-09-02 08:00] VITALS: BP 197/99
[2022-09-02] MEDS: VALPROATE SODIUM 250MG/5ML UDC PO SCH ×2 (08:38→18:16)
[2022-09-02] MEDS: ASPIRIN 81MG TABLET PO SCH (08:38)
[2022-09-02] MEDS: RISPERIDONE 1MG TABLET PO SCH ×2 (08:39→20:34)
[2022-09-02] MEDS: LOSARTAN POTASSIUM 100 MG TABLET PO SCH (10:27)
[2022-09-02] MEDS: INSULIN GLARGINE 100 UNITS/ML SUBCUT SCH ×2 (10:58→22:16)
[2022-09-02 15:53] VITALS: BP 204/104
[2022-09-02] MEDS: NIFEDIPINE XL 60MG TAB PO SCH (16:06)
[2022-09-02] MEDS ORDERED: CLONIDINE 0.1MG TABLET PO PRN (18:00)
[2022-09-02] MEDS: HYDRALAZINE 20MG/ML VIAL IV PRN (18:15)
[2022-09-02] MEDS: SODIUM CHLORIDE 0.9% 1,000 ML IV SCH (18:18)
[2022-09-02 20:00] VITALS: BP 143/69
[2022-09-03] VITALS: BP 174/85
[2022-09-03] MEDS: HYDRALAZINE 20MG/ML VIAL IV PRN (00:17)
[2022-09-03 04:00] VITALS: BP 156/81
[2022-09-03] MEDS: HYDRALAZINE HCL 100MG TABLET PO SCH ×3 (05:02→21:54)
[2022-09-03] MEDS: BLOOD SUGAR DIAGNOSTIC STRIP TEST SCH ×4 (06:42→21:42)
[2022-09-03] MEDS: INSULIN LISPRO 100 UNITS/ML SUBCUT SCH ×4 (06:42→21:55)
[2022-09-03] MEDS ORDERED: LOSARTAN POTASSIUM 100 MG TABLET PO SCH (09:00)
[2022-09-03] MEDS: ASPIRIN 81MG TABLET PO SCH (09:15)
[2022-09-03] MEDS: VALPROATE SODIUM 250MG/5ML UDC PO SCH ×2 (09:15→17:52)
[2022-09-03] MEDS: NIFEDIPINE XL 60MG TAB PO SCH ×2 (09:16→21:53)
[2022-09-03] MEDS: RISPERIDONE 1MG TABLET PO SCH ×2 (09:16→21:54)
[2022-09-03] MEDS: LOSARTAN POTASSIUM 100 MG TABLET PO SCH (09:16)
[2022-09-03] MEDS: INSULIN GLARGINE 100 UNITS/ML SUBCUT SCH ×2 (09:17→21:55)
[2022-09-03] MEDS: HALOPERIDOL LACTATE 5MG/ML VIAL IM PRN ×2 (11:12→20:40)
[2022-09-03 12:00] VITALS: BP 153/79
[2022-09-03] MEDS: SODIUM CHLORIDE 0.9% 1,000 ML IV SCH (14:54)
[2022-09-03] MEDS: CEFTRIAXONE 1,000 MG in DEXTROSE 5% WATER 50 ML IV SCH (14:54)
[2022-09-03 16:00] VITALS: BP 142/97
[2022-09-03 20:00] VITALS: BP 154/74
[2022-09-03] MEDS: METRONIDAZOLE 500MG TABLET PO SCH (21:53)
[2022-09-03] MEDS: HYDROXYZINE 25MG TABLET PO SCH (21:53)
[2022-09-03] MEDS: ACETAMINOPHEN 325MG TABLET PO PRN (22:07)
[2022-09-04] VITALS: BP 123/50
[2022-09-04 04:00] VITALS: BP 149/70
[2022-09-04] MEDS: BLOOD SUGAR DIAGNOSTIC STRIP TEST SCH ×4 (05:29→21:10)
[2022-09-04] MEDS: METRONIDAZOLE 500MG TABLET PO SCH ×3 (05:35→21:08)
[2022-09-04] MEDS: HYDRALAZINE HCL 100MG TABLET PO SCH ×3 (05:35→21:07)
[2022-09-04] MEDS: INSULIN LISPRO 100 UNITS/ML SUBCUT SCH ×4 (05:36→21:09)
[2022-09-04 07:38] LABS: BASOPHILS % 0.5 % (0.0-2.0); EOSINOPHILS % 1.7 % (0.0-5.0); HEMATOCRIT. 33.6 % (36.0-48.0); HEMOGLOBIN. 10.5 g/dL (12.0-16.0); LYMPHOCYTES % 21.1 % (20.0-50.0); MEAN CORPUSCULAR HEMOGLOBIN 20.5 pg (28.0-32.0); MEAN CORPUSCULAR VOLUME 65.6 fL (81.0-99.0); MEAN PLATELET VOLUME 8.3 fl (7.4-10.4); MONOCYTES % 10.2 % (2.0-8.0); NEUTROPHILS % 66.5 % (40.0-76.0); PLATELET 346 x1000/uL (130-400); RED BLOOD CELL COUNT 5.12 mill/uL (4.2-5.4); RED CELL DISTRIBUTION WIDTH 15.2 % (11.6-14.6)
[2022-09-04 08:00] VITALS: BP 138/74
[2022-09-04] MEDS: ASPIRIN 81MG TABLET PO SCH (09:14)
[2022-09-04] MEDS: RISPERIDONE 1MG TABLET PO SCH ×2 (09:14→21:07)
[2022-09-04] MEDS: NIFEDIPINE XL 60MG TAB PO SCH ×2 (09:14→21:08)
[2022-09-04] MEDS: VALPROATE SODIUM 250MG/5ML UDC PO SCH ×2 (09:14→16:25)
[2022-09-04] MEDS: LOSARTAN POTASSIUM 100 MG TABLET PO SCH (09:14)
[2022-09-04] MEDS: SODIUM CHLORIDE 0.9% 1,000 ML IV SCH (09:15)
[2022-09-04] MEDS: INSULIN GLARGINE 100 UNITS/ML SUBCUT SCH ×2 (09:16→21:09)
[2022-09-04 11:36] LABS: CHLORIDE 109 mEq/L (98-107)
[2022-09-04 12:00] VITALS: BP 158/80
[2022-09-04] MEDS: CEFTRIAXONE 1,000 MG in DEXTROSE 5% WATER 50 ML IV SCH (15:27)
[2022-09-04 16:00] VITALS: BP 145/68
[2022-09-04] MEDS ORDERED: POTASSIUM CHLORIDE 20MEQ TABLET SR PO NR (18:15)
[2022-09-04 20:00] VITALS: BP 155/84
[2022-09-04] MEDS: ACETAMINOPHEN 325MG TABLET PO PRN (20:03)
[2022-09-04] MEDS: HYDROXYZINE 25MG TABLET PO SCH (21:07)
[2022-09-05] VITALS: BP 136/68
[2022-09-05 04:00] VITALS: BP 134/91
[2022-09-05] MEDS: ACETAMINOPHEN 325MG TABLET PO PRN (04:47)
[2022-09-05] MEDS: SODIUM CHLORIDE 0.9% 1,000 ML IV SCH (05:43)
[2022-09-05] MEDS: METRONIDAZOLE 500MG TABLET PO SCH ×3 (05:53→20:52)
[2022-09-05] MEDS: HYDRALAZINE HCL 100MG TABLET PO SCH ×3 (05:53→20:52)
[2022-09-05] MEDS: BLOOD SUGAR DIAGNOSTIC STRIP TEST SCH ×4 (05:54→20:56)
[2022-09-05] MEDS ORDERED: LIDOCAINE HCL 1% 50ML VIAL (10MG/ML) ONE (07:20)
[2022-09-05 08:00] VITALS: BP 148/83
[2022-09-05] MEDS: INSULIN LISPRO 100 UNITS/ML SUBCUT SCH ×4 (09:45→21:09)
[2022-09-05] MEDS: INSULIN GLARGINE 100 UNITS/ML SUBCUT SCH ×2 (09:48→21:09)
[2022-09-05] MEDS: ASPIRIN 81MG TABLET PO SCH (09:48)
[2022-09-05] MEDS: VALPROATE SODIUM 250MG/5ML UDC PO SCH ×2 (09:49→18:17)
[2022-09-05] MEDS: NIFEDIPINE XL 60MG TAB PO SCH ×2 (09:50→20:52)
[2022-09-05] MEDS: RISPERIDONE 1MG TABLET PO SCH ×2 (09:50→20:51)
[2022-09-05] MEDS: LOSARTAN POTASSIUM 100 MG TABLET PO SCH (09:51)
[2022-09-05 12:00] VITALS: BP 143/88
[2022-09-05] MEDS: CEFTRIAXONE 1,000 MG in DEXTROSE 5% WATER 50 ML IV SCH (13:55)
[2022-09-05 16:00] VITALS: BP 170/85
[2022-09-05] MEDS ORDERED: INSU100I28 SQ (16:52)
[2022-09-05] MEDS ORDERED: LOSA100T3 PO (16:52)
[2022-09-05] MEDS ORDERED: HYDR100T26 PO (16:52)
[2022-09-05] MEDS: IPRATROPIUM/ALBUTEROL 0.5-3(2.5)MG/3ML NEB HHN PRN (17:35)
[2022-09-05 20:00] VITALS: BP 204/84
[2022-09-05] MEDS: HYDROXYZINE 25MG TABLET PO SCH (20:52)
[2022-09-06] VITALS: BP 170/91
[2022-09-06] MEDS: HYDRALAZINE 20MG/ML VIAL IV PRN (01:20)
[2022-09-06] MEDS: SODIUM CHLORIDE 0.9% 1,000 ML IV SCH (01:45)
[2022-09-06 04:00] VITALS: BP 133/68
[2022-09-06] MEDS: BLOOD SUGAR DIAGNOSTIC STRIP TEST SCH ×2 (06:40→11:30)
[2022-09-06] MEDS: HYDRALAZINE HCL 100MG TABLET PO SCH ×2 (06:41→12:58)
[2022-09-06] MEDS: METRONIDAZOLE 500MG TABLET PO SCH ×2 (06:41→12:59)
[2022-09-06] MEDS: INSULIN LISPRO 100 UNITS/ML SUBCUT SCH ×2 (06:46→12:58)
[2022-09-06 08:00] VITALS: BP 140/70
[2022-09-06] MEDS: LOSARTAN POTASSIUM 100 MG TABLET PO SCH (09:07)
[2022-09-06] MEDS: ASPIRIN 81MG TABLET PO SCH (09:07)
[2022-09-06] MEDS: NIFEDIPINE XL 60MG TAB PO SCH (09:07)
[2022-09-06] MEDS: RISPERIDONE 1MG TABLET PO SCH (09:07)
[2022-09-06] MEDS: VALPROATE SODIUM 250MG/5ML UDC PO SCH (09:07)
[2022-09-06] MEDS: INSULIN GLARGINE 100 UNITS/ML SUBCUT SCH (09:08)
[2022-09-06] MEDS: ACETAMINOPHEN 325MG TABLET PO PRN (10:52)
[2022-09-06 12:00] VITALS: BP 127/61
[2022-09-06 13:07] VITALS: BP 127/61
== END 2022-09-06 14:15 | disposition home health service (06) | DRG 720 ==
LOC: ER 08:58 → 7EST 10:57 → EDBEDREQSVC 11:06 → EDBEDREQ 11:06 → ENRESERV 13:11 → 7EST 08-30 21:30
PROVIDERS: ADMIT Internal Medicine; ATTEND Internal Medicine
PROC: 4A00X4Z Measurement of Central Nervous Electrical Activity, External Approach (ICD-10-PCS; 2022-09-02)
PROC: 02HV33Z Insertion of Infusion Device into Superior Vena Cava, Percutaneous Approach (ICD-10-PCS; principal; 2022-09-05)
PROC: B5181ZA Fluoroscopy of Superior Vena Cava using Low Osmolar Contrast, Guidance (ICD-10-PCS; 2022-09-05)
PROC: B548ZZA Ultrasonography of Superior Vena Cava, Guidance (ICD-10-PCS; 2022-09-05)
DX: A40.1 Sepsis due to streptococcus, group B (principal); N17.0 Acute kidney failure with tubular necrosis; G93.40 Encephalopathy, unspecified; E43 Unspecified severe protein-calorie malnutrition; I24.9 Acute ischemic heart disease, unspecified; E87.1 Hypo-osmolality and hyponatremia; E88.09 Other disorders of plasma-protein metabolism, not elsewhere classified; F29 Unspecified psychosis not due to a substance or known physiological condition; Z20.822 Contact with and (suspected) exposure to COVID-19; I11.9 Hypertensive heart disease without heart failure; E11.65 Type 2 diabetes mellitus with hyperglycemia; D50.9 Iron deficiency anemia, unspecified; E87.6 Hypokalemia; E11.9 Type 2 diabetes mellitus without complications; M19.90 Unspecified osteoarthritis, unspecified site; J44.9 Chronic obstructive pulmonary disease, unspecified; E66.01 Morbid (severe) obesity due to excess calories; N89.8 Other specified noninflammatory disorders of vagina; Z68.34 Body mass index [BMI] 34.0-34.9, adult; Z79.899 Other long term (current) drug therapy; Z78.1 Physical restraint status
CPT/HCPCS: 36415; 36573; 71045; 80048; 80053; 80320; 82140; 82607; 82962; 83735; 83880; 84145; 84443; 84484; 85025; 87077; 87186; 87426; 93005; 93306; 94640; 95816; 97161; 97166; 99285; C1725; C1893; J0360; J0696; J1630; J1815; J2060; J2270; J2405; J3370; J3411; J3475; J3480; J3490; J7030; J7060; G0480

== ENCOUNTER 2022-09-18 04:40 | Emergency (ER) | payer MEDICAID ==
[~2022-09-18] VITALS: Ht 170.2 cm; Wt 82.0 kg
[~2022-09-18 04:40] MED LIST changes: +HYDR100T26 PO; +LOSA100T3 PO
[2022-09-18] MEDS ORDERED: ACETAMINOPHEN WITH CODEINE 300/30MG TABLET PO ONE (05:15)
[2022-09-18] MEDS ORDERED: ACETAMINOPHEN WITH CODEINE 300/30MG TABLET PO NR (07:45)
[2022-09-18 11:24] LABS: HEMATOCRIT. 32.4 % (36.0-48.0); HEMOGLOBIN. 10.1 g/dL (12.0-16.0); MEAN CORPUSCULAR HEMOGLOBIN 20.8 pg (28.0-32.0); MEAN CORPUSCULAR VOLUME 66.5 fL (81.0-99.0); RED BLOOD CELL COUNT 4.87 mill/uL (4.2-5.4); RED CELL DISTRIBUTION WIDTH 16.6 % (11.6-14.6)
[2022-09-18 11:39] LABS: PLATELET ESTIMATE NORMAL
[2022-09-18 11:42] LABS: CHLORIDE 106 mEq/L (98-107)
[2022-09-18] MEDS ORDERED: PIPERACILLIN/TAZ 3.375G PREMIX 50 ML IV ONE (12:00)
[2022-09-18] MEDS ORDERED: VANCOMYCIN 1G PREMIX 200 ML IV ONE (12:00)
[2022-09-18] MEDS ORDERED: HYDRALAZINE 20MG/ML VIAL IV ONE (14:15)
[2022-09-18] MEDS ORDERED: IPRATROPIUM/ALBUTEROL 0.5-3(2.5)MG/3ML NEB HHN SCH (17:00)
[2022-09-18] MEDS ORDERED: CLONIDINE 0.1MG TABLET PO PRN (17:00)
[2022-09-18] MEDS ORDERED: MAGNESIUM/ALUMINUM HYDROXIDE/SIMETHICONE 30ML UDC PO PRN (17:00)
[2022-09-18] MEDS ORDERED: BLOOD SUGAR DIAGNOSTIC STRIP TEST SCH (17:00)
[2022-09-18] MEDS ORDERED: AMLODIPINE 10MG TABLET PO SCH (17:00)
[2022-09-18] MEDS ORDERED: LOSARTAN POTASSIUM 50 MG TABLET PO SCH (17:00)
[2022-09-18] MEDS ORDERED: DOCUSATE SODIUM 100MG CAPSULE PO PRN (17:00)
[2022-09-18] MEDS ORDERED: NITROGLYCERIN 0.4MG TABLET SL SL PRN (17:00)
[2022-09-18] MEDS ORDERED: DEXTROSE 50% WATER 50ML SYRINGE IV PRN (17:00)
[2022-09-18] MEDS ORDERED: KETOROLAC 15MG/ML VIAL IV PRN (17:00)
[2022-09-18] MEDS ORDERED: GUAIFENESIN 200MG/10ML SUGAR FREE UDC PO PRN (17:00)
[2022-09-18] MEDS ORDERED: ZOLPIDEM TARTRATE 5MG TABLET PO PRN (17:00)
[2022-09-18] MEDS ORDERED: ACETAMINOPHEN 325MG TABLET PO PRN ×2 (17:00)
[2022-09-18] MEDS ORDERED: IPRATROPIUM/ALBUTEROL 0.5-3(2.5)MG/3ML NEB NEB PRN (17:00)
[2022-09-18] MEDS ORDERED: ONDANSETRON HCL 4MG/2ML INJ IV PRN (17:00)
[2022-09-18 17:03] VITALS: BP 244/112
[2022-09-18 17:33] LABS: *AMPHETAMINES SCREEN URINE NEGATIVE (NEGATIVE); *BARBITURATES SCREEN URINE NEGATIVE (NEGATIVE); *BENZODIAZEPINES SCREEN URINE NEGATIVE (NEGATIVE); *COCAINE SCREEN URINE PRESUMTIVE POSITIVE (NEGATIVE); CANNABINOID URINE SCREEN NEGATIVE (NEGATIVE); METHADONE URINE SCREEN NEGATIVE (NEGATIVE); OPIATES URINE SCREEN NEGATIVE (NEGATIVE); PHENCYCLIDINE URINE SCREEN NEGATIVE (NEGATIVE)
[2022-09-18 17:51] LABS: T4 FREE 1.11 ng/dL (0.76-1.46)
[2022-09-18] MEDS ORDERED: ENOXAPARIN 40MG/0.4ML SYR SUBCUT SCH (18:00)
[2022-09-18 18:10] LABS: VITAMIN B12 SERUM 577 pg/mL (211-911)
[2022-09-18] MEDS ORDERED: INSULIN LISPRO 100 UNITS/ML SUBCUT SCH (18:20)
[2022-09-18] MEDS ORDERED: NITROGLYCERIN OINT 1GM/INCH UDPKT TD SCH (20:30)
[2022-09-18] MEDS ORDERED: METOPROLOL TARTRATE 25MG TABLET PO SCH (21:00)
[2022-09-18] MEDS ORDERED: INSULIN GLARGINE 100 UNITS/ML SUBCUT SCH (22:00)
[2022-09-18] MEDS ORDERED: HYDRALAZINE HCL 50MG TABLET PO SCH (22:00)
[2022-09-19] MEDS ORDERED: FAMOTIDINE 20MG TABLET PO SCH (09:00)
[2022-09-19] MEDS ORDERED: ASPIRIN 325MG EC TABLET PO SCH (09:00)
[2022-09-19] MEDS ORDERED: LEVOFLOXACIN 750MG PREMIX 150 ML IV SCH (09:00)
== END 2022-09-18 19:13 | disposition left against medical advice (07) ==
LOC: ER 04:40 → ENRESERV 13:01 → CANRESERV 13:01 → CANBEDREQ 17:16 → ER 19:13
DX: J44.1 Chronic obstructive pulmonary disease with (acute) exacerbation (principal); J44.0 Chronic obstructive pulmonary disease with (acute) lower respiratory infection; I11.0 Hypertensive heart disease with heart failure; I50.33 Acute on chronic diastolic (congestive) heart failure; E87.70 Fluid overload, unspecified; M17.11 Unilateral primary osteoarthritis, right knee; I16.0 Hypertensive urgency; J81.1 Chronic pulmonary edema; E43 Unspecified severe protein-calorie malnutrition; E11.65 Type 2 diabetes mellitus with hyperglycemia; F14.10 Cocaine abuse, uncomplicated; I16.1 Hypertensive emergency; I82.409 Acute embolism and thrombosis of unspecified deep veins of unspecified lower extremity; Z79.4 Long term (current) use of insulin; Z68.28 Body mass index [BMI] 28.0-28.9, adult
CPT/HCPCS: 36415; 71045; 73562; 80053; 80305; 82607; 82746; 83540; 83550; 83880; 84439; 84443; 84484; 85025; 93005; 96365; 96366; 96368; 96375; 99285; J0360; J2543; J3370

== ENCOUNTER 2024-06-08 20:57 | Emergency (ER) | payer SELFPAY ==
[~2024-06-08] VITALS: Ht 162.6 cm; Wt 70.0 kg
[~2024-06-08 20:57] MED LIST changes: -ALBU6.7H15 IH; +ALBU6.7H15 INH; +ATOR20TA65 MT; +COR3 MT; +FURO-152 MT; +FURO80TA87 MT; -GABA300S PO; +GABA300S4 PO; +LOSA-415 PO; -LOSA100T3 PO; +MED4 MT; +POTA-205 MT; +PULM50 NEB
[2024-06-08 20:59] VITALS: TEMP 98.2
[2024-06-08 21:46] VITALS: PULSE 86; RESP 20; O2SAT 97
[2024-06-08] MEDS: IPRATROPIUM BROMIDE (0.02%) 0.5MG/2.5ML NEB HHN STA (21:46)
[2024-06-08] MEDS: ALBUTEROL (0.083%) 2.5MG/3ML NEB HHN SCH (21:46)
[2024-06-08] MEDS: METHYLPREDNISOLONE SOD SUCC 125MG/2ML (ACT-O-VIAL) IV STA (22:07)
[2024-06-08 22:16] VITALS: PULSE 90; RESP 20; O2SAT 99
[2024-06-08 22:16] LABS: BASOPHILS % 0.8 % (0.0-2.0); DIFFERENTIAL COMMENT 1; EOSINOPHILS % 2.4 % (0.0-5.0); HEMOGLOBIN. 8.3 g/dL (12.0-16.0); LYMPHOCYTES % 26.5 % (20.0-50.0); MEAN CORPUSCULAR HEMOGLOBIN 18.9 pg (28.0-32.0); MEAN CORPUSCULAR HGB CONC 29.6 g/dL (31.0-37.0); MEAN PLATELET VOLUME 8.5 fl (7.4-10.4); MONOCYTES % 10.1 % (2.0-8.0); NEUTROPHILS % 60.2 % (40.0-76.0); PLATELET 385 x1000/uL (130-400); RED BLOOD CELL COUNT 4.38 mill/uL (4.2-5.4); RED CELL DISTRIBUTION WIDTH 23.2 % (11.6-14.6); WHITE BLOOD COUNT 8.7 x1000/uL (4.5-11.0)
[2024-06-08 22:17] LABS: ADD RBC MORPHOLOGY YES
[2024-06-08 22:23] LABS: CHLORIDE 108 mEq/L (98-107); POTASSIUM 4.1 mEq/L (3.5-5.1); SODIUM 139 mEq/L (136-145)
[2024-06-08 22:24] LABS: CARBON DIOXIDE 24 mEq/L (21-32)
[2024-06-08 22:25] LABS: CALCIUM 8.6 mg/dL (8.7-10.4)
[2024-06-08 22:26] LABS: HYPOCHROMASIA 1+; MICROCYTOSIS 2+; PLATELET ESTIMATE NORMAL
[2024-06-08 22:28] LABS: INR 1.1; PARTIAL THROMBOPLASTIN TIME 28.6 sec (23.4-31.0); PROTHROMBIN TIME 12.6 sec (9.6-11.0)
[2024-06-08 22:29] LABS: CREATININE 2.2 mg/dL (0.6-1.0)
[2024-06-08 22:30] LABS: GLUCOSE 383 mg/dL (70-105); TROPONIN I HIGH SENSITIVITY 33 ng/L (3.0-34); UREA NITROGEN BLOOD 44 mg/dL (9-23)
[2024-06-08 22:46] VITALS: PULSE 88; RESP 20; O2SAT 99
[2024-06-08] MEDS: FUROSEMIDE 40MG/4ML VIAL IVP ONE (23:54)
[2024-06-09 02:24] LABS: BG BASE EXCESS -3.1 mmol/L (-2.0-2.0); BG DEOXYHEMOGLOBIN 36.8 % (0.0-5.0); BG FRACTION INSPIRED OXYGEN 36; BG HCO3 ACT 23.3 mmol/L (22.0-26.0); BG METHEMOGLOBIN 0.1 % (0.0-1.5); BG OXYGEN SATURATION 62.4 % (92.0-98.5); BG OXYHEMOGLOBIN 61.1 % (94.0-97.0); BG PCO2 47.6 mmHg (35.0-45.0); BG PH 7.307 (7.350-7.450); BG PO2 35.8 mmHg (75.0-100.0); BG SAMPLE SITE LEFT RADIAL; BG VENT MODE NASAL CANNULA
[2024-06-09 03:00] VITALS: BP 138/84; PULSE 69; RESP 18
== END 2024-06-09 03:45 | disposition left against medical advice (07) ==
LOC: ER 20:57 → EDBEDREQTM 06-09 01:41 → EDBEDREQ 06-09 01:41 → ER 06-09 03:45
DX: I11.0 Hypertensive heart disease with heart failure (principal); I50.9 Heart failure, unspecified; E11.9 Type 2 diabetes mellitus without complications; N17.9 Acute kidney failure, unspecified; J44.1 Chronic obstructive pulmonary disease with (acute) exacerbation; E78.00 Pure hypercholesterolemia, unspecified; J45.909 Unspecified asthma, uncomplicated; Z79.899 Other long term (current) drug therapy
CPT/HCPCS: 80048; 83880; 85025; 85610; 85730; 84484; 36415; 71045; 94640; 93005; 96374; 96375; 99291; 82805; 82375; 36600; J1940; J2919; Z7610 ×3

== ENCOUNTER 2024-12-08 03:29 | Inpatient (IN) | payer MEDICAID ==
[2024-12-08] VITALS (10 sets, daily range): BP systolic 132–177; BP diastolic 91–105; PULSE 86–95; RESP 19–31; TEMP 36.6696–36.696; O2SAT 94–98
[~2024-12-08] VITALS: Ht 160 cm; Wt 99.9 kg
[~2024-12-08 03:29] MED LIST changes: -ALBU6.7H15 INH; +ALBU90AE INH; +AZIT500T8 MT; -DILT120C88 PO; -FURO80TA87 MT; -GABA300S4 PO; +HYDR100T11 PO; -HYDR100T26 PO; +INSLIS SUBCUT; -MED4 MT; +P20 MT
[2024-12-08 05:06] LABS: BG CARBOXYHEMOGLOBIN 1.5 % (0.5-1.5); BG DEOXYHEMOGLOBIN 1.2 % (0.0-5.0); BG FRACTION INSPIRED OXYGEN 50; BG HCO3 ACT 23.9 mmol/L (21.0-28.0); BG METHEMOGLOBIN 0.2 % (0.5-1.5); BG OXYGEN SATURATION 98.8 % (94.0-98.0); BG OXYHEMOGLOBIN 97.1 % (94.0-98.0); BG PCO2 52.2 mmHg (32.0-45.0); BG PH 7.278 (7.350-7.450); BG PO2 133.9 mmHg (83.0-108.0); BG SAMPLE SITE RIGHT BRACHIAL; BG TOTAL HEMOGLOBIN 8.8 g/dL (12.0-16.0); BG VENT MODE MASK - BIPAP
[2024-12-08] MEDS: ONDANSETRON HCL 4MG/2ML INJ IV STA (05:16)
[2024-12-08] MEDS: DEXTROSE 50% WATER 50ML SYRINGE IV ONE ×3 (05:16→07:29)
[2024-12-08 05:25] LABS: HEMATOCRIT. 28.5 % (36.0-48.0); HEMOGLOBIN. 8.1 g/dL (12.0-16.0); MEAN CORPUSCULAR HEMOGLOBIN 18.9 pg (28.0-32.0); MEAN CORPUSCULAR HGB CONC 28.3 g/dL (31.0-37.0); MEAN CORPUSCULAR VOLUME 66.8 fL (81.0-99.0); PLATELET 248 x1000/uL (130-400); RED BLOOD CELL COUNT 4.27 mill/uL (4.2-5.4); RED CELL DISTRIBUTION WIDTH 21.1 % (11.6-14.6); WHITE BLOOD COUNT 15.9 x1000/uL (4.5-11.0)
[2024-12-08] MEDS: METHYLPREDNISOLONE SOD SUCC 125MG/2ML (ACT-O-VIAL) IV NR (05:27)
[2024-12-08] MEDS: LABETALOL 5MG/ML 4ML INJ IV ONE (05:29)
[2024-12-08 05:32] LABS: DIFFERENTIAL COMMENT 1
[2024-12-08 05:34] LABS: CHLORIDE 113 mEq/L (98-107); POTASSIUM 4.4 mEq/L (3.5-5.1); SODIUM 146 mEq/L (136-145)
[2024-12-08 05:35] LABS: CALCIUM 8.9 mg/dL (8.7-10.4); CARBON DIOXIDE 23 mEq/L (21-32)
[2024-12-08 05:40] LABS: CREATININE 2.1 mg/dL (0.6-1.0); UREA NITROGEN BLOOD 69 mg/dL (9-23)
[2024-12-08] MEDS: MORPHINE SULFATE 2 MG/ML INJ (NOT FOR IM USE) IV ONE (05:40)
[2024-12-08 05:45] LABS: GLUCOSE 23 mg/dL (70-105); TROPONIN I HIGH SENSITIVITY 43 ng/L (3.0-34)
[2024-12-08 06:18] LABS: HYPOCHROMASIA 1+; MICROCYTOSIS 1+; PLATELET ESTIMATE NORMAL
[2024-12-08] MEDS ORDERED: DEXTROSE 50% WATER 50ML SYRINGE IV ONE (06:57)
[2024-12-08] MEDS: DEXT 10% WATER 1,000 ML IV SCH ×2 (07:34→15:58)
[2024-12-08] MEDS: ALBUTEROL (0.083%) 2.5MG/3ML NEB HHN NR (08:46)
[2024-12-08] MEDS: IPRATROPIUM BROMIDE (0.02%) 0.5MG/2.5ML NEB HHN NR (08:46)
[2024-12-08 09:00] LABS: TROPONIN I HIGH SENSITIVITY 49 ng/L (3.0-34)
[2024-12-08] MEDS: PIPERACILLIN/TAZO 3.375G/100ML IV SCH (11:10)
[2024-12-08 11:18] LABS: BG BASE EXCESS -3.8 mmol/L (-2.0-3.0); BG CARBOXYHEMOGLOBIN 1.5 % (0.5-1.5); BG DEOXYHEMOGLOBIN 2.4 % (0.0-5.0); BG FRACTION INSPIRED OXYGEN 40; BG HCO3 ACT 23.1 mmol/L (21.0-28.0); BG METHEMOGLOBIN 0.3 % (0.5-1.5); BG OXYGEN SATURATION 97.6 % (94.0-98.0); BG OXYHEMOGLOBIN 95.8 % (94.0-98.0); BG PH 7.273 (7.350-7.450); BG SAMPLE SITE RIGHT RADIAL; BG TOTAL HEMOGLOBIN 9.1 g/dL (12.0-16.0); BG VENT MODE MASK - BIPAP
[2024-12-08] MEDS: AZITHROMYCIN 500MG/250ML 250 ML IV SCH (11:54)
[2024-12-08] MEDS ORDERED: ONDANSETRON HCL 4MG/2ML INJ IV PRN (13:30)
[2024-12-08] MEDS ORDERED: FUROSEMIDE 40MG/4ML VIAL IVP SCH (13:30)
[2024-12-08] MEDS ORDERED: ACETAMINOPHEN 325MG TABLET PO PRN (15:00)
[2024-12-08] MEDS: ACETAMINOPHEN 325MG TABLET PO PRN (15:41)
[2024-12-08] MEDS: NIFEDIPINE XL 60MG TAB PO SCH (15:44)
[2024-12-08] MEDS ORDERED: GUAIFENESIN/DM 600MG/30MG ER TAB 12HR PO PRN (15:45)
[2024-12-08] MEDS: GABAPENTIN 300MG CAPSULE PO NR (15:45)
[2024-12-08] MEDS ORDERED: BLOOD SUGAR DIAGNOSTIC STRIP TEST SCH (17:30)
[2024-12-08] MEDS: FUROSEMIDE 40MG/4ML VIAL IVP SCH (19:09)
[2024-12-08] MEDS: HYDRALAZINE HCL 50MG TABLET PO SCH (19:10)
[2024-12-08] MEDS: INSULIN LISPRO 100 UNITS/ML SUBCUT SCH (20:30)
[2024-12-08] MEDS: BLOOD SUGAR DIAGNOSTIC STRIP TEST SCH (20:30)
[2024-12-08] MEDS: IPRATROPIUM/ALBUTEROL 0.5-3(2.5)MG/3ML NEB HHN SCH (20:46)
[2024-12-08] MEDS ORDERED: INSULIN LISPRO 100 UNITS/ML SUBCUT SCH (21:00)
[2024-12-08] MEDS ORDERED: NIFE-32 PO (21:48)
[2024-12-08] MEDS ORDERED: CLON0.1T PO (21:48)
[2024-12-09] VITALS (19 sets, daily range): BP systolic 109–166; BP diastolic 71–129; PULSE 76–97; RESP 14–30; TEMP 36.05844–36.61404; O2SAT 92–99
[2024-12-09] MEDS: IPRATROPIUM/ALBUTEROL 0.5-3(2.5)MG/3ML NEB HHN SCH (00:08)
[2024-12-09] MEDS: INSULIN LISPRO 100 UNITS/ML SUBCUT NR (00:09)
[2024-12-09] MEDS: CLONIDINE 0.1MG TABLET PO PRN (04:24)
[2024-12-09] MEDS ORDERED: PIPERACILLIN/TAZO 3.375G/100ML 100 ML IV SCH (06:00)
[2024-12-09] MEDS: PIPERACILLIN/TAZO 3.375G/100ML 100 ML IV SCH (07:16)
[2024-12-09] MEDS: DEXTROSE 50% WATER 50ML SYRINGE IV PRN (08:44)
[2024-12-09] MEDS: AZITHROMYCIN 500 MG TABLET PO SCH (09:09)
[2024-12-09] MEDS ORDERED: LEVO750T68 MT (13:31)
[2024-12-09] MEDS ORDERED: FURO-151 MT (13:31)
[2024-12-09] MEDS ORDERED: NIFE-32 PO (13:31)
[2024-12-09 19:39] LABS: BASOPHILS % 0.2 % (0.0-2.0); EOSINOPHILS % 2.2 % (0.0-5.0); HEMATOCRIT. 28.8 % (36.0-48.0); HEMOGLOBIN. 8.3 g/dL (12.0-16.0); LYMPHOCYTES % 26.8 % (20.0-50.0); MEAN CORPUSCULAR HEMOGLOBIN 19.5 pg (28.0-32.0); MEAN CORPUSCULAR HGB CONC 28.7 g/dL (31.0-37.0); MEAN CORPUSCULAR VOLUME 67.8 fL (81.0-99.0); MEAN PLATELET VOLUME 9.1 fl (7.4-10.4); MONOCYTES % 8.3 % (2.0-8.0); NEUTROPHILS % 62.5 % (40.0-76.0); PLATELET 220 x1000/uL (130-400); RED BLOOD CELL COUNT 4.24 mill/uL (4.2-5.4); WHITE BLOOD COUNT 5.3 x1000/uL (4.5-11.0)
[2024-12-09 19:41] LABS: DIFFERENTIAL COMMENT 1
[2024-12-10] VITALS (12 sets, daily range): BP systolic 128–157; BP diastolic 71–115; PULSE 76–93; RESP 13–25; TEMP 36.33624–36.89184; O2SAT 90–99
[2024-12-10] MEDS: PNEUMOCOCCAL 20-VAL CONJ-DIP CRM 0.5ML IM ONE (11:42)
[2024-12-10] MEDS: INFLUENZA VACCINE 05/PF 0.5 ML SYRINGE IM ONE (11:44)
[2024-12-10] MEDS: ENOXAPARIN 40MG/0.4ML SYR SUBCUT SCH (11:47)
== END 2024-12-10 15:10 | disposition home or self-care (01) | DRG 139 ==
LOC: ER 03:29 → 5EST 04:41
PROVIDERS: ADMIT Internal Medicine; ATTEND Internal Medicine
PROC: 5A09357 Assistance with Respiratory Ventilation, Less than 24 Consecutive Hours, Continuous Positive Airway Pressure (ICD-10-PCS; principal; 2024-12-08)
PROC: 5A09357 Assistance with Respiratory Ventilation, Less than 24 Consecutive Hours, Continuous Positive Airway Pressure (ICD-10-PCS; 2024-12-09)
DX: J18.9 Pneumonia, unspecified organism (principal); J96.22 Acute and chronic respiratory failure with hypercapnia; G93.40 Encephalopathy, unspecified; I50.33 Acute on chronic diastolic (congestive) heart failure; I11.0 Hypertensive heart disease with heart failure; E10.649 Type 1 diabetes mellitus with hypoglycemia without coma; J44.1 Chronic obstructive pulmonary disease with (acute) exacerbation; D72.829 Elevated white blood cell count, unspecified; E66.9 Obesity, unspecified; J44.0 Chronic obstructive pulmonary disease with (acute) lower respiratory infection; E78.00 Pure hypercholesterolemia, unspecified; F14.90 Cocaine use, unspecified, uncomplicated; F17.210 Nicotine dependence, cigarettes, uncomplicated; J98.4 Other disorders of lung; Z91.199 Patient's noncompliance with other medical treatment and regimen due to unspecified reason; Z79.4 Long term (current) use of insulin; Z68.39 Body mass index [BMI] 39.0-39.9, adult
CPT/HCPCS: 36415; 36600; 71045; 80048; 82375; 82805; 82947; 82962; 83036; 83605; 83880; 84145; 84484; 85025; 87804; 90686; 90732; 94070; 94640; 94660; 99291; A4606; A4663; J0456; J1650; J1815; J1940; J2270; J2405; J2543; J2919; J3490

== ENCOUNTER 2025-01-15 15:43 | Emergency (ER) | payer MEDICAID ==
[~2025-01-15] VITALS: Ht 165.1 cm; Wt 70.0 kg
[~2025-01-15 15:43] MED LIST changes: +ALBU18HF2 IH; -ALBU90AE INH; +ASPI-1406 PO; +AZIT250T12 PO; -AZIT500T8 MT; +CLON0.2T PO; -COR3 MT; +FURO-151 MT; -FURO-152 MT; -INSLIS SUBCUT; +INSU200I SQ; -MONT-39 PO; +NIFE-32 PO; -P20 MT; +P20 PO; -PANT40TA51 MT; -POTA-205 MT; -[UNRECOGNIZED DRUG - CODE] IN
[2025-01-15] MEDS ORDERED: FUROSEMIDE 100MG/10ML VIAL IVP ONE (16:00)
[2025-01-15 16:26] VITALS: TEMP 36.7
[2025-01-15] MEDS: IPRATROPIUM BROMIDE (0.02%) 0.5MG/2.5ML NEB HHN STA (17:24)
[2025-01-15 17:25] VITALS: PULSE 86; RESP 21; O2SAT 95
[2025-01-15] MEDS: ALBUTEROL (0.083%) 2.5MG/3ML NEB HHN STA (17:25)
[2025-01-15] MEDS: ENALAPRIL 1.25MG/ML VIAL 1ML IV ONE (17:31)
[2025-01-15] MEDS: FUROSEMIDE 40MG/4ML VIAL IVP NR (17:33)
[2025-01-15] MEDS: METHYLPREDNISOLONE SOD SUCC 125MG/2ML (ACT-O-VIAL) IV STA (17:36)
[2025-01-15 17:49] LABS: BASOPHILS % 0.3 % (0.0-2.0); EOSINOPHILS % 0.8 % (0.0-5.0); HEMATOCRIT. 29.5 % (36.0-48.0); HEMOGLOBIN. 8.1 g/dL (12.0-16.0); LYMPHOCYTES % 18.3 % (20.0-50.0); MEAN CORPUSCULAR HEMOGLOBIN 18.1 pg (28.0-32.0); MEAN CORPUSCULAR HGB CONC 27.5 g/dL (31.0-37.0); MEAN CORPUSCULAR VOLUME 65.7 fL (81.0-99.0); MEAN PLATELET VOLUME 8.5 fl (7.4-10.4); MONOCYTES % 8.7 % (2.0-8.0); NEUTROPHILS % 71.9 % (40.0-76.0); PLATELET 245 x1000/uL (130-400); RED BLOOD CELL COUNT 4.49 mill/uL (4.2-5.4); RED CELL DISTRIBUTION WIDTH 19.8 % (11.6-14.6)
[2025-01-15 17:50] LABS: DIFFERENTIAL COMMENT 1
[2025-01-15 17:51] LABS: ADD RBC MORPHOLOGY YES
[2025-01-15 17:54] LABS: CHLORIDE 109 mEq/L (98-107); POTASSIUM 4.8 mEq/L (3.5-5.1); SODIUM 143 mEq/L (136-145)
[2025-01-15 17:55] LABS: CALCIUM 8.6 mg/dL (8.7-10.4); CARBON DIOXIDE 23 mEq/L (21-32)
[2025-01-15 17:59] LABS: PROTHROMBIN TIME 11.6 sec (9.6-11.0)
[2025-01-15 18:00] LABS: CREATININE 2.1 mg/dL (0.6-1.0); GLUCOSE 329 mg/dL (70-105); UREA NITROGEN BLOOD 40 mg/dL (9-23)
[2025-01-15 18:01] LABS: TROPONIN I HIGH SENSITIVITY 18 ng/L (3.0-34)
[2025-01-15 18:32] LABS: HYPOCHROMASIA 3+; MICROCYTOSIS 3+; PLATELET ESTIMATE NORMAL
[2025-01-15 18:33] LABS: ANISOCYTOSIS 2+; OVALOCYTES 1+
[2025-01-15 20:00] VITALS: BP 167/82; PULSE 94; RESP 18; O2SAT 96
[2025-01-15] MEDS ORDERED: BUDESONIDE 0.5MG/2ML NEB HHN SCH (21:00)
[2025-01-15] MEDS ORDERED: CEFTRIAXONE 1GM/50ML 50 ML IV SCH (21:00)
[2025-01-15] MEDS ORDERED: BLOOD SUGAR DIAGNOSTIC STRIP TEST SCH (21:00)
[2025-01-15] MEDS ORDERED: ACETAMINOPHEN 325MG TABLET PO PRN ×2 (21:00)
[2025-01-15] MEDS ORDERED: HYDROCODONE/ACETAMINOPHEN 5/325MG TABLET PO PRN (21:00)
[2025-01-15] MEDS ORDERED: PANTOPRAZOLE SODIUM 40 MG/VIAL IV NR (21:00)
[2025-01-15] MEDS ORDERED: DOCUSATE SODIUM 100MG CAPSULE PO PRN (21:00)
[2025-01-15] MEDS ORDERED: INSULIN LISPRO 100 UNITS/ML SUBCUT SCH ×2 (21:00)
[2025-01-15] MEDS ORDERED: IPRATROPIUM/ALBUTEROL 0.5-3(2.5)MG/3ML NEB HHN PRN (21:00)
[2025-01-15] MEDS ORDERED: CLONIDINE 0.1MG TABLET PO PRN (21:00)
[2025-01-15] MEDS ORDERED: GUAIFENESIN 200MG/10ML SUGAR FREE UDC PO PRN (21:00)
[2025-01-15] MEDS ORDERED: ONDANSETRON HCL 4MG/2ML INJ IV PRN (21:00)
[2025-01-15] MEDS ORDERED: NA PHOS,M-B/NA PHOS,DI-BA ENEMA 118ML PR PRN (21:00)
[2025-01-15] MEDS ORDERED: DEXTROSE 50% WATER 50ML SYRINGE IV PRN (21:00)
[2025-01-15] MEDS ORDERED: MAGNESIUM/ALUMINUM HYDROXIDE/SIMETHICONE 30ML UDC PO PRN (21:00)
[2025-01-15] MEDS ORDERED: DIPHENHYDRAMINE 50MG/ML VIAL IV PRN (21:00)
[2025-01-15] MEDS ORDERED: INSULIN GLARGINE 100 UNITS/ML SUBCUT SCH (22:00)
[2025-01-15] MEDS ORDERED: HYDRALAZINE HCL 100MG TABLET PO SCH (22:00)
[2025-01-15] MEDS ORDERED: AZITHROMYCIN 500MG/250ML 250 ML IV SCH (22:00)
[2025-01-16] MEDS ORDERED: IPRATROPIUM/ALBUTEROL 0.5-3(2.5)MG/3ML NEB HHN SCH
[2025-01-16] MEDS ORDERED: ASPIRIN 81MG EC TABLET PO SCH (09:00)
[2025-01-16] MEDS ORDERED: METHYLPREDNISOLONE SOD SUCC 40MG/ML (ACT-O-VIAL) IV SCH (09:00)
[2025-01-16] MEDS ORDERED: FERROUS SULFATE 325MG TABLET PO SCH (09:00)
[2025-01-16] MEDS ORDERED: ATORVASTATIN CALCIUM 20MG TABLET PO SCH (09:00)
[2025-01-16] MEDS ORDERED: FUROSEMIDE 40MG/4ML VIAL IVP SCH (09:00)
[2025-01-16] MEDS ORDERED: PANTOPRAZOLE SODIUM 40 MG/VIAL IV SCH (09:00)
[2025-01-16] MEDS ORDERED: ENOXAPARIN 30MG/0.3ML SYR SUBCUT SCH (09:00)
[2025-01-16] MEDS ORDERED: NIFEDIPINE XL 60MG TAB PO SCH (09:00)
[2025-01-16] MEDS ORDERED: LOSARTAN 100 MG TABLET PO SCH (09:00)
[2025-01-16] MEDS ORDERED: CLONIDINE 0.2MG TABLET PO SCH (09:00)
== END 2025-01-16 09:32 | disposition left against medical advice (07) ==
LOC: ER 15:43
DX: I50.33 Acute on chronic diastolic (congestive) heart failure (principal); I16.1 Hypertensive emergency; Z79.4 Long term (current) use of insulin; Z79.51 Long term (current) use of inhaled steroids; Z79.52 Long term (current) use of systemic steroids; Z79.82 Long term (current) use of aspirin; E61.1 Iron deficiency; E11.22 Type 2 diabetes mellitus with diabetic chronic kidney disease; Z79.84 Long term (current) use of oral hypoglycemic drugs; Z79.899 Other long term (current) drug therapy; Z83.3 Family history of diabetes mellitus; Z87.01 Personal history of pneumonia (recurrent); Z87.891 Personal history of nicotine dependence
CPT/HCPCS: 80048; 83880; 85025; 85610; 84484; 36415; 71045; 94640; 93005; 96374; 96375; 99285; J0456; J3490; J1940; J2919; Z7610 ×5; 94070; 94664; A4606

== ENCOUNTER 2025-01-27 00:58 | Emergency (ER) | payer MEDICAID ==
[~2025-01-27] VITALS: Ht 167.6 cm; Wt 69.0 kg
[2025-01-27] MEDS: METHYLPREDNISOLONE SOD SUCC 125MG/2ML (ACT-O-VIAL) IV STA (01:23)
[2025-01-27] MEDS: IPRATROPIUM BROMIDE (0.02%) 0.5MG/2.5ML NEB HHN STA ×2 (02:30→06:30)
[2025-01-27] MEDS: ALBUTEROL (0.083%) 2.5MG/3ML NEB HHN STA ×2 (02:31→06:29)
[2025-01-27 02:34] VITALS: PULSE 92; RESP 24; O2SAT 99
[2025-01-27] MEDS: ACETAMINOPHEN 325MG TABLET PO ONE (03:16)
[2025-01-27] MEDS: GABAPENTIN 100MG CAPSULE PO ONE (03:17)
[2025-01-27 04:31] LABS: BASOPHILS % 0.6 % (0.0-2.0); EOSINOPHILS % 1.2 % (0.0-5.0); HEMATOCRIT. 26.1 % (36.0-48.0); HEMOGLOBIN. 7.7 g/dL (12.0-16.0); LYMPHOCYTES % 16.5 % (20.0-50.0); MEAN CORPUSCULAR HEMOGLOBIN 18.7 pg (28.0-32.0); MEAN CORPUSCULAR HGB CONC 29.6 g/dL (31.0-37.0); MEAN CORPUSCULAR VOLUME 63.3 fL (81.0-99.0); MEAN PLATELET VOLUME 8.4 fl (7.4-10.4); MONOCYTES % 6.9 % (2.0-8.0); NEUTROPHILS % 74.8 % (40.0-76.0); PLATELET 290 x1000/uL (130-400); RED BLOOD CELL COUNT 4.13 mill/uL (4.2-5.4)
[2025-01-27 04:44] LABS: CHLORIDE 110 mEq/L (98-107); POTASSIUM 4.4 mEq/L (3.5-5.1); SODIUM 145 mEq/L (136-145)
[2025-01-27 04:45] LABS: CARBON DIOXIDE 25 mEq/L (21-32)
[2025-01-27 04:46] LABS: CALCIUM 8.7 mg/dL (8.7-10.4); INR 1.1; PARTIAL THROMBOPLASTIN TIME 33.4 sec (23.4-31.0); PROTHROMBIN TIME 11.5 sec (9.6-11.0)
[2025-01-27 04:50] LABS: CREATININE 2.1 mg/dL (0.6-1.0); GLUCOSE 172 mg/dL (70-105); UREA NITROGEN BLOOD 36 mg/dL (9-23)
[2025-01-27 04:52] LABS: TROPONIN I HIGH SENSITIVITY 23 ng/L (3.0-34)
[2025-01-27 04:54] LABS: DIFFERENTIAL COMMENT 1
[2025-01-27 05:12] LABS: ETHANOL BLOOD < 10 mg/dL (<10)
[2025-01-27] MEDS ORDERED: P20 MT (05:15)
[2025-01-27] MEDS ORDERED: ALBU90AE INH (05:15)
[2025-01-27 06:10] VITALS: BP 144/81; O2SAT 91
[2025-01-27 06:30] VITALS: PULSE 87; RESP 24; O2SAT 90
== END 2025-01-27 07:29 | disposition home or self-care (01) ==
LOC: ER 00:58
DX: J44.1 Chronic obstructive pulmonary disease with (acute) exacerbation (principal); I11.0 Hypertensive heart disease with heart failure; I50.9 Heart failure, unspecified; J45.909 Unspecified asthma, uncomplicated; E11.9 Type 2 diabetes mellitus without complications; D64.9 Anemia, unspecified; N28.9 Disorder of kidney and ureter, unspecified; Z79.899 Other long term (current) drug therapy; Z79.4 Long term (current) use of insulin; Z79.82 Long term (current) use of aspirin; Z00.00 Encounter for general adult medical examination without abnormal findings
CPT/HCPCS: 80048; 80320; 83880; 85025; 85610; 85730; 84484; 36415; 71045; 94640; 93005; 96374; 99285; J2919; Z7610 ×3; 94070; A4606; G0480